=== PATIENT | female | born 1940 | race Caucasian/White ===

== ENCOUNTER 2024-02-29 15:46 | Emergency (ER) | payer OTHER, SELFPAY ==
[2024-02-29 15:54] VITALS: BP 167/107
--- NOTE | 2024-02-29 15:57 | ED.PDOC.TRB ---
ED Provider Triage
-
Patient seen by provider in Triage?: Seen in Triage
Fell recently and had left hip pain after fall. Had x-rays done at outside hospital 5 days ago which were negative. Has increased pain to left hip since then. CT pelvis ordered for occult fracture. Baby aspirin, no other thinners. Was started
on percocet and prednisone for presumed PMR flare.
--- NOTE | 2024-02-29 18:57 | ED.GENMED ---
History of Present Illness
General
Chief Complaint: Musculo-Skeletal Complaint
Source: patient
Exam Limitations: none
Time Seen by Provider: 02/29/24 18:05
Nursing documentation reviewed up to this point in time: agreed with
History of Present Illness
History of Present Illness:
Patient is a an 83-year-old female presents to the ER for evaluation of left hip pain. Patient reports that she has had several falls over the past several months last in October but over the past 3 weeks she has had worsening pain in the left hip.
She was seen rheumatology because she had a diagnosis of temporal arteritis in 2019. She reports pain is in her left hip radiating to left groin beginning progressively worse. On Thursday she was started on Medrol Dosepak by her ethnic studies professor but
on Thursday the pain was so severe she had an x-ray which was unremarkable and was seen at [facility] and started on 40 mg of steroids for the past 5 days. She was also given a prescription for oxycodone and has been taking a gram of Tylenol
several times a day as needed. She reports pain is actually getting worse. Family at bedside they have not been able to get in with orthopedic doctor.
she is able to walk however complains of worening pain. She denies any recent falls. She denies any fever/chills/redness to groin. She denies any other joint pain.
Review of Systems
Review of Systems
Allergies reviewed?: Yes
All Other Systems: ROS reviewed and negative except as documented in HPI and ROS
Constitutional: Reports no symptoms; Denies fever, fatigue or chills
Respiratory: Reports no symptoms
Cardiac: Reports no symptoms
ABD/GI: Reports no symptoms
Musculoskeletal: Reports other (left groin pain )
Skin: Reports no symptoms
Neurological: Reports no symptoms
Psychiatric: Reports no symptoms
Phy Exam
General Physical Exam
General Presentation: no apparent distress
General age: appears stated age
General Skin: warm and dry
General Habitus: normal
General Mental: alert
General Hydration: appears well hydrated
Neurological Exam
Neurological Exam: alert and oriented x3
Musculoskeletal Exam
Musculoskeletal Exam: other (pt w/ strong pulses to left lle pain with internal/external rotation of left hip ; no erythema on exam able to bear weight )
Skin Exam
Skin Exam: normal color and warm/dry
Psychiatric Exam
Psychiatric Exam: normal mood/affect
Course
Orders/Labs/Results
Orders:
Orders
02/29/24 15:56
CT Pelvis W/o Iv Contrast Urgent
Comment:
Reason For Exam: fall, left hip pain
Vital Signs
Initial and Last Documented VS:
Initial Vital Signs
Temp Pulse Resp BP Pulse Ox
98.3 F 90 18 167/107 98
02/29/24 15:54 02/29/24 15:54 02/29/24 15:54 02/29/24 15:54 02/29/24 15:54
Last Documented Vital Signs
Temp Pulse Resp BP Pulse Ox
98.3 F 90 18 167/107 98
02/29/24 15:54 02/29/24 15:54 02/29/24 15:54 02/29/24 15:54 02/29/24 15:54
MDM/Problems Addressed
MDM/Problems Addressed:
Patient is document is an 83-year-old female who presented with left hip pain for the past several weeks last fall was in October. She has been seen by her ethnic studies professor had x-rays however pain is getting worse. She denies any fever chills on exam
there is no evidence of redness or infection on exam CAT scan was done which is negative for fracture dislocation other additional findings reviewed with patient possible fibroids discussed close outpatient follow-up she has a precertification
already for MRI and son at bedside will schedule at tomorrow however will give orthopedic follow-up which she has not done. She is able to bear weight. She was given steroids and completed then we will hold off on steroids. will given pain meds
as this is the only type of medication that has worked.
*Radiology
Radiology exam reviewed: radiology read reviewed (CAT scan shows no evidence of fracture or dislocation other findings reviewed)
*Pulse Oximetry
Patient hypoxic: no
*Critical Care Note
Total Time (30-74mins, 75-104mins- exclusive of procedures): Not Applicable
ED Attending Note
-
Portions of this chart may have been created with voice recognition software.� Occasional wrong word or��sound alike� substitutions may have occurred due to the inherent limitations of voice recognition software.
Discharge Plan
Departure
Patient Disposition: Home (Routine Discharge)
Date of Disposition: 02/29/24
Time of Disposition: 20:00
Patient with high blood pressure during this ER visit?: Yes
Condition: Fair
Covid-19: Not Applicable
Discharge Problem:
Acute hip pain
Instructions: Hip Pain ED
Prescriptions:
New
oxycodone 5 mg tablet
5 mg PO Q6H PRN (Reason: Pain) Qty: 10 0RF
Referrals:
Peter Yanez MD [Active] -
UNKNOWN - PT DOES,NOT KNOW [Family Provider] -
Activity Restrictions/Additional Instructions:
As discussed a prescription for oxycodone was sent to pharmacy take as directed. It is important to take stool softener as needed as this will cause constipation. Follow-up closely with orthopedics. Please call tomorrow to make an appointment
return if any worsening of symptoms including worsening pain fever chills.
Interventions
Interventions:
*Risk Screen - Suicide Last Done: 02/29/24 15:54
*General Assessment Last Done: 02/29/24 15:54
*Neglect/Abuse Screening Last Done: 02/29/24 15:54
Discharge Date and Time
Print Language: COOK ISLANDER
[2024-02-29] MEDS: ROXICODONE 5 MG PO (20:12)
[2024-02-29 20:16] VITALS: BP 132/68
== END 2024-02-29 20:22 | disposition home or self-care (01) ==
LOC: EMR 15:46
PROVIDERS: EMERGENCY PHYSICIAN Emergency Medicine
DX: M25.552 Pain in left hip (principal); W19.XXXA Unspecified fall, initial encounter; M31.6 Other giant cell arteritis; I10 Essential (primary) hypertension; K21.9 Gastro-esophageal reflux disease without esophagitis; E03.9 Hypothyroidism, unspecified; Z79.82 Long term (current) use of aspirin; R29.6 Repeated falls; Z88.2 Allergy status to sulfonamides; Z88.8 Allergy status to other drugs, medicaments and biological substances; Z88.6 Allergy status to analgesic agent; Z91.012 Allergy to eggs; Z91.040 Latex allergy status
CPT/HCPCS: 99284; 72192

== ENCOUNTER 2024-03-04 08:41 | Inpatient (IN) | payer OTHER, SELFPAY ==
[2024-03-01 18:39] VITALS: BP 155/74
[2024-03-01] MEDS: DECADRON 10 MG IV (21:12)
[2024-03-01] MEDS: TORADOL 15 MG IV (21:13)
[2024-03-01 21:29] LABS: % Basophils 0.5 % (0-2); % Eosinophils 3.1 % (0-6); % Immature Granulocytes 0.6 % (0-0.5); % Lymphocytes 28.2 % (20.5-51.1); % Monocytes 9.6 % (1.7-9.3); Absolute Basophils 0.1 10^3/uL (0-0.2); Absolute Eosinophils 0.5 10^3/uL (0-0.7); Absolute Immature Granulocytes 0.1 10^3/uL (0-0.05); Absolute Lymphocytes 4.6 10^3/uL (1.2-3.4); Absolute Monocytes 1.6 10^3/uL (0.1-0.6); Absolute Neutrophils 9.4 10^3/uL (1.4-6.5); Hematocrit 41.1 % (37.0-47.0); Hemoglobin 13.6 g/dL (12.0-16.0); Mean Corp Hgb Conc. 33.1 g/dL (33.0-37.0); Mean Corpuscular Hgb 27.8 pg (27.0-31.0); Mean Platelet Volume 8.1 fL (7.4-10.4); Nucleated Red Blood Cells % 0 %; Platelet Count 614 10^3/uL (130-400); Red Blood Cell Count 4.89 10^6/uL (4.20-5.40); Red Cell Dist. Width 15.5 % (11.5-14.5); White Blood Cell Count 16.2 10^3/uL (4.8-10.8)
--- NOTE | 2024-03-01 21:31 | ED.GENMED ---
History of Present Illness
General
Chief Complaint: Musculo-Skeletal Complaint
Source: patient and family
Exam Limitations: none
Time Seen by Provider: 03/01/24 20:00
Nursing documentation reviewed up to this point in time: agreed with
History of Present Illness
History of Present Illness:
Patient presents to ED secondary to worsening left hip pain over the past 2 weeks. Patient has been evaluated in ED on multiple occasions as well as a visit with her loft worker apprentice. Patient has taken steroids, as well as Percocet at home, with
minimal relief in symptoms. Denies direct trauma. Denies fever or chills. Denies loss of sensation or weakness. Denies back pain. Denies urinary or bowel incontinence. Denies previous history of similar symptoms. Patient has had x-ray, as
well as CT hip, without identification of etiology behind her symptoms. Patient is scheduled to receive MRI next week, as well as orthopedic surgeon consult. Unfortunately, pain has worsened to a point, where patient states that she is unable to
ambulate. Of note, patient has been evaluated and treated at outpatient physical therapy, secondary to 'balance issues'.
Review of Systems
Review of Systems
Allergies reviewed?: Yes
All Other Systems: ROS reviewed and negative except as documented in HPI and ROS
Constitutional: Reports no symptoms
EENT: Reports no symptoms
ABD/GI: Reports no symptoms
: Reports no symptoms; Denies incontinence
Musculoskeletal: Reports joint pain
Skin: Reports no symptoms
Neurological: Reports no symptoms; Denies weakness or numbness
Phy Exam
Physical Exam
Physical Exam:
Physical Exam
General: mild painful distress, not acutely ill. afebrile
Head: nc/at. eomi
Neck: supple. no meningeal signs
Abdomen: normal bowel sounds. not tender.
Neuro: alert and oriented. no focal neurological deficits
Skin: no rash
Psychiatric: well kept. interactive and cooperative
Extremities: diffuse left hip tenderness to palpation, and with internal/external rotation.
Course
Orders/Labs/Results
Orders:
Orders
03/01/24 21:05
Dexamethasone Sod Phosphate [Decadron] 10 mg IV NOW STA
Ketorolac [Toradol] 15 mg IV NOW STA
03/01/24 21:19
C-Reactive Protein Urgent
Comment: ADD ON
CPK [Creatine Phosphokinase] Urgent
Complete Blood Count/With Diff Urgent
Comprehensive Metabolic Panel Urgent
Erythrocyte Sed Rate Urgent
Comment: ADD ON
Magnesium Urgent
03/01/24 21:31
Add On- LAB Urgent
Tests Added?: ESR, CRP
03/01/24 22:38
Admit/Transfer Patient As Directed
Co-Sign Provider:
Level of Care: Observation services
Assign to:: Medical/Surgical
Physician / Group: isa
Diagnosis: left hip pain/ambulatory dysfunction
PRN Pain Medication Management As Directed
May give lesser potent ordered pain med per pt: Yes
preference::
Protocol:: Medication orders for pain may be administered in a
manner that supports deferring to patient preference
when the pt is:
- Requesting an ordered lesser potent pain medication.
Least to most potent pain medications are defined
as: acetaminophen < NSAID < tramadol < opioids
(morphine, oxycodone, hydromorphone).
- Requesting a lesser dose of the same medication IF
ORDERED.
- Requesting a less intrusive route of administration
if both routes are prescribed by the provider (PO <
IV).
03/01/24 22:39
Code Status As Directed
Resuscitation Status: Full Code
03/01/24 23:00
HYDROmorphone [Dilaudid] 0.5 mg IV Q4HPRN PRN
03/02/24 00:09
Acetaminophen [Tylenol] 650 mg PO Q4HPRN PRN
Bisacodyl [Dulcolax] 10 mg RECTAL [id number] PRN
Docusate W/Senna [Senokot-S] 1 tablet PO BIDPRN PRN
Melatonin 1.5 mg PO HSPRN PRN
Polyethylene Glycol Powder [Miralax] 17 grams PO DAILYPRN PRN
03/02/24 00:09
MR Pelvis W/o & With Contrast Routine
Comment:
Reason For Exam: left hip pain
Recent pill cam endoscopy?: No
Activity As Directed
Activity Level: As Tolerated
Vital Signs As Directed
Frequency: Per unit guidelines
DX Deep Vein Thrombosis Video Routine
03/02/24 Breakfast
Cholesterol Lowering
At Your Request: Full Participation
Does patient need a safe tray?: No
Cholesterol Lowering: Sodium, 2 Gram
Basic Metabolic Panel IN AM
Complete Blood Count/No Diff IN AM
Levothyroxine [Synthroid] 37.5 mcg PO DAILY@0600
Physical Therapy Consult [Pt Eval And Treat] IN AM
Activity Level: As Tolerated
03/02/24 08:00
Aspirin Low Dose EC [Aspir Low (Enteric Coated)] 81 mg PO DAILY
Bupropion(24Hr)Extended Releas [WELLBUTRIN XL (24 hour extended release)] 150 mg PO DAILY
Calcium Carbonate [Oscal Linden 500] 500 mg PO BID
Mirabegron Extended Release [Myrbetriq Extended Release] 50 mg PO DAILY
ezetimibe-simvastatin 1 tablet PO DAILY
03/02/24 18:00
Amlodipine [Norvasc] 5 mg PO QPM
Enoxaparin Sodium [Lovenox] 40 mg SC QPM
Losartan [Cozaar] 100 mg PO QPM
Methenamine Hippurate [Hiprex] 1 gram PO QPM
Abnormal Lab Results
03/01/24
21:19
WBC 16.2 H 10^3/uL
(4.8-10.8)
RDW 15.5 H %
(11.5-14.5)
Plt Count 614 H 10^3/uL
(130-400)
Abs Immat Gran (auto) 0.1 H 10^3/uL
(0-0.05)
Absolute Neuts (auto) 9.4 H 10^3/uL
(1.4-6.5)
Absolute Lymphs (auto) 4.6 H 10^3/uL
(1.2-3.4)
Absolute Monos (auto) 1.6 H 10^3/uL
(0.1-0.6)
Immature Gran % 0.6 H %
(0-0.5)
Monocytes % 9.6 H %
(1.7-9.3)
Sodium 133 L mmol/L
(135-145)
Chloride 97 L mmol/L
(98-107)
BUN 33 H mg/dl
(7-17)
Glucose 104 H mg/dl
(70-99)
03/01/24 21:19
03/01/24 21:19
Vital Signs
Initial and Last Documented VS:
Initial Vital Signs
Temp Pulse Resp BP Pulse Ox
98.3 F 97 18 155/74 97
03/01/24 18:39 03/01/24 18:39 03/01/24 18:39 03/01/24 18:39 03/01/24 18:39
Last Documented Vital Signs
Temp Pulse Resp BP Pulse Ox
97.9 F 81 18 111/62 94
03/02/24 00:00 03/02/24 00:00 03/02/24 00:00 03/02/24 00:00 03/02/24 00:00
MDM/Problems Addressed
MDM/Problems Addressed:
Patient with continual hip pain, despite taking pain medications at home. This is patient's third ED visit in 8 days with ongoing symptoms, without clear etiology. Will admit for further evaluation and treatment.
*Critical Care Note
Total Time (30-74mins, 75-104mins- exclusive of procedures): Not Applicable
ED Attending Note
-
Portions of this chart may have been created with voice recognition software.� Occasional wrong word or��sound alike� substitutions may have occurred due to the inherent limitations of voice recognition software.
Discharge Plan
Departure
Patient Disposition: Admit
Date of Disposition: 03/01/24
Time of Disposition: 22:01
Presentation/result/management discussed w/ accepting MD/DO: Hospitalist
Discharge Problem:
intractable hip pain
Interventions
Interventions:
*Risk Screen - Suicide Last Done: 03/02/24 00:28
*General Assessment Last Done: 03/01/24 19:45
*Neglect/Abuse Screening Last Done: 03/01/24 19:45
ED- Fall Risk Assessment Last Done: 03/02/24 00:18
*ED COVID-19 Vaccine History Last Done: 03/02/24 00:28
*Nursing Disposition Last Done: 03/02/24 00:18
ED-Musculoskeletal Assessment Last Done: 03/01/24 19:45
Discharge Date and Time
Discharge Date/Time: 03/02/24 00:19
[2024-03-01 21:54] LABS: ALT (SGPT) 31 U/L (0-35); AST (SGOT) 32 U/L (14-36); Albumin 4.8 g/dl (3.5-5.0); Alkaline Phosphatase 60 U/L (38-126); Blood Urea Nitrogen 33 mg/dl (7-17); Calcium 9.5 mg/dl (8.4-10.2); Carbon Dioxide 30 mmol/L (22-30); Chloride 97 mmol/L (98-107); Creatine Phosphokinase 68 U/L (30-135); Glucose 104 mg/dl (70-99); Magnesium 2.2 mg/dl (1.6-2.3); Potassium 4.8 mmol/L (3.5-5.1); Sodium 133 mmol/L (135-145); Total Bilirubin 0.8 mg/dl (0.2-1.3); eGFR > 60.00
[2024-03-01 22:09] LABS: Erythrocyte Sed Rate 4 mm/hour (0-20)
--- NOTE | 2024-03-01 22:09 | HPS.HSE ---
Addendum entered and electronically signed by Micah Babin DO 03/01/24 23:55:
Patient seen and examined independently. Agree with findings and plan as set forth by DAVEY Antonio.
Patient is an 83y F with PMH significant for hypertension, hypothyroidism and giant cell arteritis who presents to ED complaining of L hip pain. Patient states that pain has been present for about 10 days. No significant fall, injury or trauma
is reported. Patient has been seen here in the ED and by her PCP with no clear etiology for her pain discovered.
Patient states that the pain is in the L buttocks with radiation into the L anterior thigh and groin. No GI, GI complaints.
No vaginal bleeding or discharge. No fevers / chills. No rash / skin lesions appreciated.
Ass:
Left Hip Pain
Abnormal Pelvic CT
Leukocytosis - ? steroid induced
Benign Hypertension
Hypothyroidism
GERD
Plan:
Observe overnight for further evaluation and treatment.
CT shows uterine fibroids and - specifically - cervical fibroid measuring 3cm.
Mild DJD, no occult fractures, etc.
Check pelvis MRI for further evaluation.
Supportive care / pain control /etc for now.
PT / OT evaluations.
Consider Ortho v STATION SUPERVISOR evaluation depending on results of MRI.
Continue usual home medications.
Original Note:
Family Physician
-
Family Physician: NOT KNOW UNKNOWN - PT DOES
Chief Complaint
-
left hip pain
History of Present Illness
83 year old with PMH for Giant cell arteritis,HTN, depression,HLD,hypothyroidism, GERD presented to us with with left hip pain radiating to her thigh and left groin for past ten days. patient was evaluated by her outside maintenance worker, who prescribed her
gabapentin with no relief in her symptoms. patient was evaluated at [place] ED. X rays with no acute findings. patient was sent home on prednisone and Percocet, which helped her briefly. she is scheduled to get MRI next week. the pain is affecting
her activities of daily living. patient can barely walk due to the pain. Denies direct trauma. Denies fever or chills. Denies loss of sensation or weakness. Denies back pain. Denies urinary or bowel incontinence. Of note, patient has been
evaluated and treated at outpatient physical therapy, secondary to foot drop and ambulatory dysfunction.
admitting for further management.
Medical History
Past Medical History
Past Medical History: Reports Other
Additional Past Medical History:
giant cell arteritis
HTN
HLD
hypothyroidism
NSTEMI
pneumonia
b/l Foot drop
Past Surgical History: Reports Other
Additional Past Surgical History:
c section
Social History
Tobacco: Former Smoker
Alcohol: Occasional
Drug: None
Family History
Family History: Not pertinent
Allergies / Home Medications
Allergies reflects when Allergies were last updated in [facility].
Home Medications with original date entered in [facility]
Allergy/Medication List:
Allergies
Allergy/AdvReac Type Severity Reaction Status Date / Time
acetaminophen [From Tylenol] Allergy Pharmacy Verified 03/01/24 18:43
to Review
diphenhydramine Allergy Unknown Verified 03/01/24 18:42
[From Benadryl]
egg Allergy Unknown Verified 03/01/24 18:42
etomidate Allergy Unknown Verified 03/01/24 18:42
ibuprofen [From Motrin] Allergy Unknown Verified 03/01/24 18:42
latex Allergy Unknown Verified 03/01/24 18:42
Sulfa (Sulfonamide Allergy Unknown Verified 03/01/24 18:42
Antibiotics)
tocilizumab [From Actemra] Allergy Unknown Verified 03/01/24 18:42
Home Medications
acetaminophen 500 mg tablet (Tylenol Extra Strength) 1,000 mg PO Q6H 03/01/24
amlodipine 5 mg tablet 5 mg PO QPM 03/01/24
aspirin 81 mg tablet,delayed release 81 mg PO DAILY 03/01/24
bupropion HCl 150 mg 24 hr tablet, extended release 150 mg PO DAILY 03/01/24
calcium citrate 200 mg (950 mg) tablet 200 mg PO BID 03/01/24
cranberry fruit 450 mg tablet (cranberry) 900 mg PO BID 03/01/24
estradiol 0.01% (0.1 mg/gram) vaginal cream 1 appful vaginal SUTH 03/01/24
ezetimibe 10 mg-simvastatin 20 mg tablet 1 tab PO DAILY 03/01/24
levothyroxine 75 mcg tablet 37.5 mcg PO DAILY 03/01/24
losartan 50 mg tablet 100 mg PO QPM 03/01/24
melatonin 3 mg tablet 1.5 mg PO HSPRN PRN sleep 03/01/24
methenamine hippurate 1 gram tablet 1 g PO QPM 03/01/24
mirabegron 50 mg tablet,extended release 24 hr (Myrbetriq) 50 mg PO DAILY 03/01/24
omeprazole 40 mg capsule,delayed release 40 mg PO DAILY 03/01/24
oxycodone 5 mg tablet 5 mg PO Q6H Pain 03/01/24
therapeutic multivitamin 1 tab PO DAILY 03/01/24
Review of Systems
-
Constitutional: Reports No Symptoms
EENT: Reports No Symptoms
Respiratory: Reports No Symptoms
Cardiac: Reports No Symptoms
Abdomen/GI: Reports No Symptoms
: Reports No Symptoms
Musculoskeletal: Reports Other (left hip pain)
Skin: Reports No Symptoms
Neurological: Reports No Symptoms
Endocrine: Reports No Symptoms
Hematologic/Lymphatic: Reports No Symptoms
Psych: Reports No Symptoms
Physical Exam
Vital Signs
Vital Signs
Temp Pulse Resp BP Pulse Ox
98.3 F 97 18 155/74 97
03/01/24 18:39 03/01/24 18:39 03/01/24 18:39 03/01/24 18:39 03/01/24 18:39
Physical Exam
General: Well Developed, Well Nourished and No Apparent Distress
HEENT: NormoCephalic, Moist mucous membranes and Atraumatic
Respiratory: Clear
Cardiac: S1/S2 and Regular Rhythm; No Murmur or Rub
GI: Soft, Non Tender, Non Distended and Normal Bowel Sounds; No Organomegaly
Rectal: Deferred by Provider
Musculoskeletal: No Clubbing, No Cyanosis and No Edema
Skin: No Rash
Neuro: AO x 3 and Nonfocal/grossly intact
Psych: Calm
Laboratory Results
-
03/01/24 21:19
03/01/24 21:19
Laboratory Results
Total Bilirubin 0.8 mg/dl (0.2-1.3) 03/01/24 21:19
AST 32 U/L (14-36) 03/01/24 21:19
ALT 31 U/L (0-35) 03/01/24 21:19
Alkaline Phosphatase 60 U/L (38-126) 03/01/24 21:19
Data Reviewed
-
CT Scan: Report Reviewed by me
Lab Data: Labs Reviewed by me
Impression/Plan
-
#intractable left hip pain unclear cause
#calcified fibroid
-pelvis CT with No CT evidence for acute fracture or dislocation.1.8 cm calcification involving the right side of the uterus compatible with calcified fibroid.At the junction of the superior vagina and the cervix, 3 cm rounded focus of relatively
increased density. Etiology for this finding is uncertain, possibly a cervical fibroid. If further imaging evaluation is desired, consideration for pelvic ultrasound and/or pelvic MRI.
-MRI of Pelvis
-Tylenol, Dilaudid prn for pain
-consider STATION SUPERVISOR vs ortho pending MRI results.
-PT consult
#leukocytosis likely from steroids
-afebrile, ctm
-wbc 16.2
#essential HTN
-Norvasc, and losartan continued with hold parameter
#HLD
-statin continued
#hypothyroidism
-levothyroxine continued
#GERD
-PPI continued
#DVT prophylaxis
-Lovenox
#CODE status
-full code
[2024-03-01 22:38] VITALS: BP 106/70
[2024-03-01] MEDS: DILAUDID 0.5 MG IV (23:07)
[2024-03-01 23:15] VITALS: BP 148/78
[2024-03-01 23:16] VITALS: BMI 28.3
[2024-03-01 23:27] LABS: C-Reactive Protein < 5.00 mg/L (0.0-10.00)
[2024-03-02] VITALS: BP 111/62; BMI 26.9
--- NOTE | 2024-03-02 | PTCARENOTE ---
Pt arrived from ED via stretcher and ambulated to bed. Pt is AAOx3, VSS, and rates pain 1/10. Pt is resting comfortably w/ call mistry within reach.
[2024-03-02] MEDS: TYLENOL 650 MG PO ×2 (03:21→07:58)
[2024-03-02] MEDS: DILAUDID 0.5 MG IV (04:57)
[2024-03-02] MEDS: SYNTHROID 37.5 MCG PO (04:59)
[2024-03-02 07:54] VITALS: BP 96/62
[2024-03-02] MEDS: ZETIA 10 MG PO (07:55)
[2024-03-02] MEDS: LIPITOR 10 MG PO (07:55)
[2024-03-02] MEDS: MYRBETRIQ EXTENDED RELEASE 50 MG PO (07:55)
[2024-03-02] MEDS: WELLBUTRIN XL (24 hour extended release) 150 MG PO (07:55)
[2024-03-02] MEDS: ASPIR LOW (ENTERIC COATED) 81 MG PO (07:55)
[2024-03-02] MEDS: OSCAL CAL 500 500 MG PO ×2 (07:56→19:36)
[2024-03-02 08:59] LABS: Hematocrit 41.5 % (37.0-47.0); Hemoglobin 13.7 g/dL (12.0-16.0); Mean Corpuscular Hgb 27.7 pg (27.0-31.0); Mean Corpuscular Volume 83.8 fL (81.0-99.0); Mean Platelet Volume 8.3 fL (7.4-10.4); Platelet Count 660 10^3/uL (130-400); Red Blood Cell Count 4.95 10^6/uL (4.20-5.40); Red Cell Dist. Width 15.5 % (11.5-14.5); White Blood Cell Count 11.7 10^3/uL (4.8-10.8)
[2024-03-02 10:33] LABS: Blood Urea Nitrogen 25 mg/dl (7-17); Calcium 9.4 mg/dl (8.4-10.2); Carbon Dioxide 26 mmol/L (22-30); Chloride 97 mmol/L (98-107); Estimated Creatinine Clearance 49 ml/min; Glucose 167 mg/dl (70-99); Sodium 135 mmol/L (135-145); eGFR > 60.00
--- NOTE | 2024-03-02 12:19 | W.PN.HOSP.TC ---
Today's Communication/Plan
-
Monitor vital signs
see plan
Pain control
MRI today
Monitor leukocytosis
Assessment / Plan
Assessment / Plan
General: Well Developed, Well Nourished and No Apparent Distress
HEENT: NormoCephalic, Moist mucous membranes and Atraumatic
Respiratory: Clear
Cardiac: S1/S2 and Regular Rhythm; No Murmur or Rub
GI: Soft, Non Tender, Non Distended and Normal Bowel Sounds
Musculoskeletal: No Edema
Neuro: AO x 3 and Nonfocal/grossly intact
Psych: Calm
intractable left hip pain unclear cause
#calcified fibroid
-pelvis CT with No CT evidence for acute fracture or dislocation.1.8 cm calcification involving the right side of the uterus compatible with calcified fibroid.At the junction of the superior vagina and the cervix, 3 cm rounded focus of relatively
increased density. Etiology for this finding is uncertain, possibly a cervical fibroid. If further imaging evaluation is desired, consideration for pelvic ultrasound and/or pelvic MRI.
-MRI of Pelvis amd lumbar spine
-Tylenol, Dilaudid prn for pain
-consider DENTURE MODEL MAKER vs ortho pending MRI results.
-PT consult
#leukocytosis likely from steroids
-afebrile, ctm
Hyponatremia
Improving, monitor
#essential HTN
-Norvasc, and losartan continued with hold parameter
#HLD
-statin continued
#hypothyroidism
-levothyroxine continued
#GERD
-PPI continued
#DVT prophylaxis
-Lovenox
#CODE status
-full code
Anticipated Discharge: 24 - 48 hours
Subjective/Interval History
-
Date of Service: March 02, 2024
has some pain
Objective Data
-
Labs:
Laboratory Results
03/02/24
08:26
WBC 11.7 H
Hgb 13.7
Hct 41.5
Plt Count 660 H
Sodium 135
Potassium 5.0
Chloride 97 L
Carbon Dioxide 26
BUN 25 H
Creatinine 0.8
Glucose 167 H
Calcium 9.4
Vital Signs:
Vital Signs
Temp Pulse Resp BP Pulse Ox
97.8 F 79 18 96/62 96
03/02/24 07:54 03/02/24 07:54 03/02/24 07:54 03/02/24 07:54 03/02/24 07:54
[2024-03-02 13:40] LABS: Creatine Phosphokinase 53 U/L (30-135)
[2024-03-02] MEDS: SENOKOT-S 1 TABLET PO (15:23)
[2024-03-02] MEDS: MIRALAX 17 GRAMS PO (15:23)
[2024-03-02 15:55] VITALS: BP 125/58
[2024-03-02] MEDS: COZAAR 100 MG PO (16:51)
[2024-03-02] MEDS: HIPREX 1 GRAM PO (16:51)
[2024-03-02] MEDS: LOVENOX 40 MG SC (16:51)
[2024-03-02] MEDS: NORVASC 5 MG PO (16:51)
--- NOTE | 2024-03-02 17:29 | PTCARENOTE ---
Patient ambulating to bathroom with supervision. Patient has no c/o pain at present. Patient c/o constipation-Miralax and Senekot given.
[2024-03-02 23:00] VITALS: BP 113/52
[2024-03-03] MEDS: SYNTHROID 37.5 MCG PO (05:26)
[2024-03-03 07:30] VITALS: BP 140/70
[2024-03-03 08:14] LABS: % Basophils 0.5 % (0-2); % Eosinophils 2.5 % (0-6); % Immature Granulocytes 0.6 % (0-0.5); % Lymphocytes 35.6 % (20.5-51.1); % Monocytes 8.6 % (1.7-9.3); % Neutrophils 52.2 % (42.2-75.2); Absolute Basophils 0.1 10^3/uL (0-0.2); Absolute Eosinophils 0.3 10^3/uL (0-0.7); Absolute Immature Granulocytes 0.1 10^3/uL (0-0.05); Absolute Lymphocytes 4.6 10^3/uL (1.2-3.4); Absolute Monocytes 1.1 10^3/uL (0.1-0.6); Absolute Neutrophils 6.7 10^3/uL (1.4-6.5); Hematocrit 41.3 % (37.0-47.0); Hemoglobin 13.5 g/dL (12.0-16.0); Mean Corp Hgb Conc. 32.7 g/dL (33.0-37.0); Mean Corpuscular Hgb 27.8 pg (27.0-31.0); Mean Corpuscular Volume 85.2 fL (81.0-99.0); Mean Platelet Volume 8.3 fL (7.4-10.4); Nucleated Red Blood Cells % 0 %; Platelet Count 600 10^3/uL (130-400); Red Blood Cell Count 4.85 10^6/uL (4.20-5.40); Red Cell Dist. Width 15.6 % (11.5-14.5); White Blood Cell Count 12.9 10^3/uL (4.8-10.8)
[2024-03-03] MEDS: ZETIA 10 MG PO (08:25)
[2024-03-03] MEDS: MYRBETRIQ EXTENDED RELEASE 50 MG PO (08:25)
[2024-03-03] MEDS: OSCAL CAL 500 500 MG PO ×2 (08:25→20:21)
[2024-03-03] MEDS: LIPITOR 10 MG PO (08:25)
[2024-03-03] MEDS: ASPIR LOW (ENTERIC COATED) 81 MG PO (08:25)
[2024-03-03] MEDS: TYLENOL 650 MG PO ×2 (08:25→18:09)
[2024-03-03] MEDS: WELLBUTRIN XL (24 hour extended release) 150 MG PO (08:25)
[2024-03-03 08:43] LABS: Blood Urea Nitrogen 28 mg/dl (7-17); Calcium 9.5 mg/dl (8.4-10.2); Carbon Dioxide 27 mmol/L (22-30); Chloride 101 mmol/L (98-107); Estimated Creatinine Clearance 49 ml/min; Glucose 79 mg/dl (70-99); Potassium 4.6 mmol/L (3.5-5.1); Sodium 135 mmol/L (135-145); eGFR > 60.00
[2024-03-03] MEDS: ATIVAN 0.5 MG PO (10:42)
--- NOTE | 2024-03-03 12:32 | W.PN.HOSP.TC ---
Today's Communication/Plan
-
Monitor vital signs see plan
Pain control
MRI
Assessment / Plan
Assessment / Plan
General: Well Developed, Well Nourished and No Apparent Distress
HEENT: NormoCephalic, Moist mucous membranes and Atraumatic
Respiratory: Clear
Cardiac: S1/S2 and Regular Rhythm; No Murmur or Rub
GI: Soft, Non Tender, Non Distended and Normal Bowel Sounds
Musculoskeletal: No Edema
Neuro: AO x 3 and Nonfocal/grossly intact
Psych: Calm
intractable left hip pain unclear cause
#calcified fibroid
-pelvis CT with No CT evidence for acute fracture or dislocation.1.8 cm calcification involving the right side of the uterus compatible with calcified fibroid.At the junction of the superior vagina and the cervix, 3 cm rounded focus of relatively
increased density. Etiology for this finding is uncertain, possibly a cervical fibroid. If further imaging evaluation is desired, consideration for pelvic ultrasound and/or pelvic MRI.
-MRI of Pelvis pending; MRI lumbar spine with degenerative disc disease with foraminal narrowing
-Tylenol, Dilaudid prn for pain. per patient pain is improving. If imaging does not show any acute findings and she can likely be discharged with outpatient follow-up.
-consider APPOINTMENT COORDINATOR vs ortho pending MRI results. if no acute issues then can be seen outpatient
-PT/OT consult
#leukocytosis likely from steroids
-afebrile, ctm
Hyponatremia
Improving, monitor
#essential HTN
-Norvasc, and losartan continued with hold parameter
#HLD
-statin continued
#hypothyroidism
-levothyroxine continued
#GERD
-PPI continued
#DVT prophylaxis
-Lovenox
#CODE status
-full code
Anticipated Discharge: Within 24 hours
Subjective/Interval History
-
Date of Service: March 03, 2024
denies pain
Objective Data
-
Labs:
Laboratory Results
03/03/24
07:09
WBC 12.9 H
Hgb 13.5
Hct 41.3
Plt Count 600 H
Sodium 135
Potassium 4.6
Chloride 101
Carbon Dioxide 27
BUN 28 H
Creatinine 0.8
Glucose 79
Calcium 9.5
Vital Signs:
Vital Signs
Temp Pulse Resp BP Pulse Ox
98 F 78 16 140/70 98
03/03/24 07:30 03/03/24 07:30 03/03/24 07:30 03/03/24 07:30 03/03/24 07:30
I&O
03/02/24 03/03/24 03/04/24
06:59 06:59 06:59
Intake Total 840 / 840
Balance 840 / 840
[2024-03-03 15:45] VITALS: BP 106/58
[2024-03-03] MEDS: DULCOLAX 10 MG RECTAL (16:09)
[2024-03-03] MEDS: HIPREX 1 GRAM PO (18:09)
[2024-03-03] MEDS: NORVASC 5 MG PO (18:09)
[2024-03-03] MEDS: COZAAR 100 MG PO (18:09)
[2024-03-03] MEDS: LOVENOX 40 MG SC (18:10)
[2024-03-03] MEDS: DILAUDID 0.5 MG IV (21:22)
[2024-03-03 23:19] VITALS: BP 122/68
[2024-03-04] MEDS: TYLENOL 650 MG PO ×4 (02:45→19:39)
[2024-03-04] MEDS: OMNIPAQUE 50 ML PO (06:06)
[2024-03-04] MEDS: SYNTHROID 37.5 MCG PO (06:07)
[2024-03-04 08:03] VITALS: BP 110/58
[2024-03-04 08:36] LABS: % Basophils 0.6 % (0-2); % Eosinophils 3.8 % (0-6); % Immature Granulocytes 0.5 % (0-0.5); % Lymphocytes 25.7 % (20.5-51.1); % Monocytes 9.8 % (1.7-9.3); % Neutrophils 59.6 % (42.2-75.2); Absolute Basophils 0.1 10^3/uL (0-0.2); Absolute Eosinophils 0.4 10^3/uL (0-0.7); Absolute Immature Granulocytes 0.1 10^3/uL (0-0.05); Absolute Lymphocytes 2.8 10^3/uL (1.2-3.4); Absolute Monocytes 1.1 10^3/uL (0.1-0.6); Absolute Neutrophils 6.5 10^3/uL (1.4-6.5); Hematocrit 39.4 % (37.0-47.0); Hemoglobin 13.2 g/dL (12.0-16.0); Mean Corp Hgb Conc. 33.5 g/dL (33.0-37.0); Mean Corpuscular Hgb 28.7 pg (27.0-31.0); Mean Corpuscular Volume 85.7 fL (81.0-99.0); Mean Platelet Volume 8.4 fL (7.4-10.4); Nucleated Red Blood Cells % 0 %; Platelet Count 522 10^3/uL (130-400); Red Cell Dist. Width 15.2 % (11.5-14.5)
[2024-03-04 09:01] LABS: Blood Urea Nitrogen 25 mg/dl (7-17); Calcium 9.5 mg/dl (8.4-10.2); Carbon Dioxide 27 mmol/L (22-30); Chloride 95 mmol/L (98-107); Estimated Creatinine Clearance 49 ml/min; Glucose 86 mg/dl (70-99); Potassium 4.4 mmol/L (3.5-5.1); Sodium 130 mmol/L (135-145); eGFR > 60.00
[2024-03-04] MEDS: ASPIR LOW (ENTERIC COATED) 81 MG PO (09:55)
[2024-03-04] MEDS: LIPITOR 10 MG PO (09:56)
[2024-03-04] MEDS: WELLBUTRIN XL (24 hour extended release) 150 MG PO (09:56)
[2024-03-04] MEDS: MYRBETRIQ EXTENDED RELEASE 50 MG PO (09:56)
[2024-03-04] MEDS: ZETIA 10 MG PO (09:56)
[2024-03-04] MEDS: OSCAL CAL 500 500 MG PO ×2 (09:57→19:39)
--- NOTE | 2024-03-04 12:55 | W.PN.HOSP.TC ---
Today's Communication/Plan
-
Monitor vital signs and see plan
Colorectal surgery evaluation
Monitor sodium
Assessment / Plan
Assessment / Plan
General: Well Developed, Well Nourished and No Apparent Distress
HEENT: NormoCephalic, Moist mucous membranes and Atraumatic
Respiratory: Clear
Cardiac: S1/S2 and Regular Rhythm; No Murmur or Rub
GI: Soft, Non Tender, Non Distended and Normal Bowel Sounds
Musculoskeletal: No Edema
Neuro: AO x 3 and Nonfocal/grossly intact
Psych: Calm
intractable left hip pain unclear cause
#calcified fibroid
-pelvis CT with No CT evidence for acute fracture or dislocation.1.8 cm calcification involving the right side of the uterus compatible with calcified fibroid.At the junction of the superior vagina and the cervix, 3 cm rounded focus of relatively
increased density. Etiology for this finding is uncertain, possibly a cervical fibroid. If further imaging evaluation is desired, consideration for pelvic ultrasound and/or pelvic MRI.
-MRI of Pelvis pending; MRI lumbar spine with degenerative disc disease with foraminal narrowing
-Tylenol, Dilaudid prn for pain. per patient pain is improving. If imaging does not show any acute findings and she can likely be discharged with outpatient follow-up.
Follow-up with [facility] outpatient. MRI was concerning for possible rectal mass. CT scan of the abdomen/pelvis 03/04 noted. Direct visualization is advised. colorectal consulted
-PT/OT consult
#leukocytosis likely from steroids
-afebrile, ctm
Hyponatremia
monitor
#essential HTN
-Norvasc, and losartan continued with hold parameter
#HLD
-statin continued
#hypothyroidism
-levothyroxine continued
#GERD
-PPI continued
#DVT prophylaxis
-Lovenox
#CODE status
-full code
Anticipated Discharge: Within 24 hours
Subjective/Interval History
-
Date of Service: March 04, 2024
denies nausea
Objective Data
-
Labs:
Laboratory Results
03/04/24
08:13
WBC 11.0 H
Hgb 13.2
Hct 39.4
Plt Count 522 H
Sodium 130 L
Potassium 4.4
Chloride 95 L
Carbon Dioxide 27
BUN 25 H
Creatinine 0.8
Glucose 86
Calcium 9.5
Vital Signs:
Vital Signs
Temp Pulse Resp BP Pulse Ox
97.5 F 70 18 110/58 98
03/04/24 08:03 03/04/24 08:03 03/04/24 08:03 03/04/24 08:03 03/04/24 08:03
I&O
03/03/24 03/04/24 03/05/24
06:59 06:59 06:59
Intake Total 840 / 840 1380 / 1380
Balance 840 / 840 1380 / 1380
--- NOTE | 2024-03-04 13:45 | CON.CRS ---
Consultation
-
Date/Time Consultation Requested: 03/04/2024, 12:54
Date/Time Consultation Performed: 03/04/2024, 14:30
Requesting Provider: Link Mercado MD
Performing Provider: Arpit Wilkins MD
Reason for Consultation: possible rectal mass
Medical History
-
Chief Complaint: left groin and thigh pain
History of Present Illness:
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 She was seen by her outpatient bolt man who prescribed her gabapentin which did not help relieve her
symptoms. Initially she went to [facility] and had an x-ray with no acute findings. She was sent home on prednisone and Percocet which helped minimally. She has an outpatient MRI scheduled for next week. Due to unable to hardly walk due to the
pain, she came to [facility]. She denies any direct trauma to the area.
Upon admission she underwent a pelvic CT which showed no evidence of acute fracture or dislocation, a 1.8 cm calcification in the right side of the uterus compatible with calcified fibroid, at the junction of superior vagina and cervix there is a 3
cm rounded focus of relatively increased density, etiology uncertain. Given this finding, she then underwent an MRI of the pelvis. The MRI of the pelvis showed a prominent cervix with probable innumerable complex nabothian cysts. Rectal mass.
This could represent adherent feces. Today she underwent a CT of the abdomen and pelvis which showed an either wall adherent stool or mass in the distal rectum with no evidence of metastatic disease in the abdomen or pelvis.
The patient states she has no abdominal pain. She denies nausea or vomiting. She denies fevers or chills. Her bowel movements are regular and unchanged. She has no bleeding rectally. She is urinating without difficulty. Her previous abdominal
surgeries include one . Her last colonoscopy was over 10 years ago at [facility] and was normal. Given these findings we have been consulted for further surgical opinion.
Past Medical History
Past Medical History: HTN, Hypercholesterolemia, Hypothyroidism and Other (giant cell arteritis, NSTEMI, pneumonia, b/l foot drop )
Past Surgical History:
Social History
Tobacco: Former Smoker
Alcohol: Occasional
Drug: None
Family History
Family History: Reviewed & Not Pertinent
Allergies / Home Medications
Allergy/AdvReac Type Severity Reaction Status Date / Time
acetaminophen [From Tylenol] Allergy Pharmacy Verified 03/01/24 18:43
to Review
diphenhydramine Allergy Unknown Verified 03/01/24 18:42
[From Benadryl]
egg Allergy Unknown Verified 03/01/24 18:42
etomidate Allergy Unknown Verified 03/01/24 18:42
ibuprofen [From Motrin] Allergy Unknown Verified 03/01/24 18:42
latex Allergy Unknown Verified 03/01/24 18:42
Sulfa (Sulfonamide Allergy Unknown Verified 03/01/24 18:42
Antibiotics)
tocilizumab [From Actemra] Allergy Unknown Verified 03/01/24 18:42
�Medication �Instructions �Recorded �Confirmed �Type
acetaminophen 500 mg tablet 1,000 mg PO Q6H pain 03/01/24 03/01/24 History
(Tylenol Extra Strength)
amlodipine 5 mg tablet 5 mg PO QPM Blood Pressure 03/01/24 03/01/24 History
aspirin 81 mg tablet,delayed 81 mg PO DAILY Blood Clot 03/01/24 03/01/24 History
release Prevention/Tx
bupropion HCl 150 mg 24 hr tablet, 150 mg PO DAILY depression/anxiety 03/01/24 03/01/24 History
extended release
calcium citrate 200 mg (950 mg) 200 mg PO BID Supplement 03/01/24 03/01/24 History
tablet
cranberry fruit 450 mg tablet 900 mg PO BID Supplement 03/01/24 03/01/24 History
(cranberry)
estradiol 0.01% (0.1 mg/gram) 1 appful vaginal SUTH Hormonal 03/01/24 03/01/24 History
vaginal cream Agent
ezetimibe 10 mg-simvastatin 20 mg 1 tab PO DAILY High Cholesterol 03/01/24 03/01/24 History
tablet
levothyroxine 75 mcg tablet 37.5 mcg PO DAILY Thyroid 03/01/24 03/01/24 History
losartan 50 mg tablet 100 mg PO QPM Blood Pressure 03/01/24 03/01/24 History
melatonin 3 mg tablet 1.5 mg PO HSPRN PRN sleep 03/01/24 03/01/24 History
methenamine hippurate 1 gram tablet 1 g PO QPM Urinary Issue 03/01/24 03/01/24 History
mirabegron 50 mg tablet,extended 50 mg PO DAILY Urinary Issue 03/01/24 03/01/24 History
release 24 hr (Myrbetriq)
omeprazole 40 mg capsule,delayed 40 mg PO DAILY Gastrointestinal 03/01/24 03/01/24 History
release Issue
oxycodone 5 mg tablet 5 mg PO Q6H Pain 03/01/24 03/01/24 History
therapeutic multivitamin 1 tab PO DAILY Supplement 03/01/24 03/01/24 History
Review of Systems
-
Abdomen/GI: Other (left groin pain)
Musculoskeletal: Joint Pain (left hip)
A 10 point review of systems was completed, and was negative except as per HPI.
Physical Exam
Vital Signs
Temp 97.5 F 03/04/24 08:03
Pulse 70 03/04/24 08:03
Resp Rate 18 03/04/24 08:03
Blood pressure 110/58 03/04/24 08:03
SaO2 98 03/04/24 08:03
Body Mass Index (BMI) 26.9
Lab Results / Allergies
03/04/24 08:13
03/04/24 08:13
WBC 11.0 10^3/uL (4.8-10.8) H 03/04/24 08:13
Hgb 13.2 g/dL (12.0-16.0) 03/04/24 08:13
Hct 39.4 % (37.0-47.0) 03/04/24 08:13
Plt Count 522 10^3/uL (130-400) H 03/04/24 08:13
Abs Immat Gran (auto) 0.1 10^3/uL (0-0.05) H 03/04/24 08:13
Neutrophils % 59.6 % (42.2-75.2) 03/04/24 08:13
Allergy/AdvReac Type Severity Reaction Status Date / Time
acetaminophen [From Tylenol] Allergy Pharmacy Verified 03/01/24 18:43
to Review
diphenhydramine Allergy Unknown Verified 03/01/24 18:42
[From Benadryl]
egg Allergy Unknown Verified 03/01/24 18:42
etomidate Allergy Unknown Verified 03/01/24 18:42
ibuprofen [From Motrin] Allergy Unknown Verified 03/01/24 18:42
latex Allergy Unknown Verified 03/01/24 18:42
Sulfa (Sulfonamide Allergy Unknown Verified 03/01/24 18:42
Antibiotics)
tocilizumab [From Actemra] Allergy Unknown Verified 03/01/24 18:42
Physical Exam
General: Well Developed and Well Nourished
GI: Soft, Non Tender and Non Distended
Rectal: Other (normal tone, soft mass noted at the tip of my finger, no blood)
Neuro: AO x 3
Data Reviewed
-
CT Scan: Image Personally Visualized and interpreted and Report Reviewed by me
MRI: Image Personally Visualized and interpreted and Report Reviewed by me
Labs: Labs Reviewed by me and Discussed with Physician
Old Records: Reviewed
Assessment / Plan
-
Assessment: 83yo female with left sided groin pain for two weeks, found to have a likely rectal mass on pelvic MRI
Plan:
-Given these findings on MRI, patient will need visualization of the area with a biopsy. Recommend GI consult.
-Continue current pain medication
-Further plans to follow after biopsy
-Will follow
[2024-03-04 16:02] VITALS: BP 127/77
--- NOTE | 2024-03-04 16:59 | CON.GI ---
Addendum entered and electronically signed by Rimma Green MD 03/05/24 11:01:
I saw and examined the patient.
The INVENTORY CONTROL/SHIPPING RECEIVING's note was reviewed and I agree with the note.
-- Rectal mass noted incidentally on imaging. Evaluated by colorectal surgery. Last colonoscopy over 10 years back in [place]
plan
Patient is agreeable for colonoscopy on Thursday
Clear liquid diet tomorrow
Bowel prep tomorrow
Original Note:
Consultation
-
Date/Time Consultation Requested: 03/04/24 1532
Date/Time Consultation Performed: 03/05/24 0650
Requesting Provider: Dr. Mercado
Performing Provider: Dr. Green/DAVYE Georges
Reason for Consultation: rectal mass
Medical History
Chief Complaint / HPI
Chief Complaint: right hip pain
History of Present Illness:
83-year-old female with past medical history of giant cell arteritis, hypertension, hyperlipidemia, hypothyroidism, non-ST elevated SD, pneumonia, bilateral foot drop who presented to the emergency room after having continued left hip pain with
radiation into the thigh and left groin. Patient was seen as an outpatient by her loss control representative with steroids that were prescribed. She was also on Percocet that helped mildly as well. She was scheduled to have an MRI next week as well as
follow-up with orthopedics. She came to the emergency room because of ambulatory dysfunction. CT of the abdomen and pelvis was performed that showed either wall adherent stool or mass in distal rectum. Pelvic MRI was performed that showed rectal
mass 1.8 cm contiguous with the mucosal surface. She was seen by colorectal surgery with rectal exam performed. Soft mass noted at the tip of finger. We were asked to evaluate for further evaluation as well as colonoscopy for visualization and
biopsy. The patient states that her last colonoscopy was at the age of 71. She states that she all her colonoscopies have been negative. She has no family history of gastrointestinal malignancy. She denies any fevers, chills, nausea, vomiting,
melena, hematochezia, dysphagia or dyne aphasia. No early satiety or unintentional weight loss. She has had no change in her bowel habits. She usually has soft to loose bowel movements. She has not had a bowel movement here as she is getting
pain control for her left hip.
Past Medical History
Past Medical History: HTN, Hypercholesterolemia, Hypothyroidism and Other (Giant cell arteritis, non-ST elevated SD, pneumonia, bilateral foot drop)
Past Surgical History:
Social History
Tobacco: Former Smoker
Alcohol: Occasional
Drug: None
Employment: Retired
Family History
Family History: Reviewed & Not Pertinent and Other (No family history gastrointestinal malignancy or IBD)
Allergies / Home Medications
Allergy/AdvReac Type Severity Reaction Status Date / Time
acetaminophen [From Tylenol] Allergy Pharmacy Verified 03/01/24 18:43
to Review
diphenhydramine Allergy Unknown Verified 03/01/24 18:42
[From Benadryl]
egg Allergy Unknown Verified 03/01/24 18:42
etomidate Allergy Unknown Verified 03/01/24 18:42
ibuprofen [From Motrin] Allergy Unknown Verified 03/01/24 18:42
latex Allergy Unknown Verified 03/01/24 18:42
Sulfa (Sulfonamide Allergy Unknown Verified 03/01/24 18:42
Antibiotics)
tocilizumab [From Actemra] Allergy Unknown Verified 03/01/24 18:42
�Medication �Instructions �Recorded
acetaminophen 500 mg tablet 1,000 mg PO Q6H pain 03/01/24
(Tylenol Extra Strength)
amlodipine 5 mg tablet 5 mg PO QPM Blood Pressure 03/01/24
aspirin 81 mg tablet,delayed 81 mg PO DAILY Blood Clot 03/01/24
release Prevention/Tx
bupropion HCl 150 mg 24 hr tablet, 150 mg PO DAILY depression/anxiety 03/01/24
extended release
calcium citrate 200 mg (950 mg) 200 mg PO BID Supplement 03/01/24
tablet
cranberry fruit 450 mg tablet 900 mg PO BID Supplement 03/01/24
(cranberry)
estradiol 0.01% (0.1 mg/gram) 1 appful vaginal SUTH Hormonal 03/01/24
vaginal cream Agent
ezetimibe 10 mg-simvastatin 20 mg 1 tab PO DAILY High Cholesterol 03/01/24
tablet
levothyroxine 75 mcg tablet 37.5 mcg PO DAILY Thyroid 03/01/24
losartan 50 mg tablet 100 mg PO QPM Blood Pressure 03/01/24
melatonin 3 mg tablet 1.5 mg PO HSPRN PRN sleep 03/01/24
methenamine hippurate 1 gram tablet 1 g PO QPM Urinary Issue 03/01/24
mirabegron 50 mg tablet,extended 50 mg PO DAILY Urinary Issue 03/01/24
release 24 hr (Myrbetriq)
omeprazole 40 mg capsule,delayed 40 mg PO DAILY Gastrointestinal 03/01/24
release Issue
oxycodone 5 mg tablet 5 mg PO Q6H Pain 03/01/24
therapeutic multivitamin 1 tab PO DAILY Supplement 03/01/24
Review of Systems
-
All other systems: A 12 pt ROS was Negative except as stated above in HPI
Vital Signs
Temp Pulse Resp BP Pulse Ox
98 F 83 18 127/77 98
03/04/24 16:02 03/04/24 16:02 03/04/24 16:02 03/04/24 16:02 03/04/24 16:02
Physical Exam
Exam
General: No Apparent Distress
HEENT: Anicteric
Respiratory: Clear
Cardiac: Regular Rhythm
GI: Soft, Non Tender, Non Distended and Normal Bowel Sounds
Musculoskeletal: No Edema
Neuro: AO x 3
Psych: Calm
Results
WBC 11.0 10^3/uL (4.8-10.8) H 03/04/24 08:13
Hgb 13.2 g/dL (12.0-16.0) 03/04/24 08:13
Hct 39.4 % (37.0-47.0) 03/04/24 08:13
MCV 85.7 fL (81.0-99.0) 03/04/24 08:13
Plt Count 522 10^3/uL (130-400) H 03/04/24 08:13
Absolute Neuts (auto) 6.5 10^3/uL (1.4-6.5) 03/04/24 08:13
Sodium 130 mmol/L (135-145) L 03/04/24 08:13
Potassium 4.4 mmol/L (3.5-5.1) 03/04/24 08:13
Chloride 95 mmol/L (98-107) L 03/04/24 08:13
Carbon Dioxide 27 mmol/L (22-30) 03/04/24 08:13
BUN 25 mg/dl (7-17) H 03/04/24 08:13
Creatinine 0.8 mg/dL (0.6-1.0) 03/04/24 08:13
Calcium 9.5 mg/dl (8.4-10.2) 03/04/24 08:13
Total Bilirubin 0.8 mg/dl (0.2-1.3) 03/01/24 21:19
AST 32 U/L (14-36) 03/01/24 21:19
ALT 31 U/L (0-35) 03/01/24 21:19
Alkaline Phosphatase 60 U/L (38-126) 03/01/24 21:19
Diagnostic Image Results:
CT Abd/Pelvis with IV/Oral Contrast 03/04/24:
IMPRESSION:
Either wall adherent stool or a mass within the distal rectum, suboptimally evaluated on the current examination and better visualized on MRI the pelvis. There is no evidence of metastatic disease in the abdomen or pelvis. Direct visualization is
recommended to exclude the possibility of a distal rectal mass.
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 Routine, nonemergent outpatient MRI of the abdomen is recommended for further evaluation.
Calcified uterine fibroids.
Other Chronic/incidental findings as detailed in the body of the report.
Electronically signed by Bruno Hirsch DO, 03/04/2024 10:19 AM
Lumbar spine MRI 03/03/24:
IMPRESSION:
Minor scoliosis. Mild degenerative disc disease. Facet arthrosis. Minimal grade 1 spondylolisthesis of L4 and L5.
Small protrusion at L1-2 with mild right foraminal narrowing.
Mild left foraminal narrowing at L3-4.
Tiny annular fissure and small bulge at L4-5, with mild to moderate central canal narrowing and bilateral lateral recess stenosis, right greater than left, compressing the descending L5 nerve roots. Moderate bilateral foraminal narrowing.
Moderate right and mild left foraminal narrowing at L5-S1.
Electronically signed by Aj Song MD, 03/03/2024 12:22 P
Pelvis MRI 03/03/24:
IMPRESSION:
Prominent cervix, with probable innumerable complex nabothian cysts. No significant enhancement following intravenous contrast. Correlation with gynecologic exam and Pap smear recommended.
Rectal mass. Although this could represent adherent feces, digital rectal examination advised to assess for the possibility of a polyp.
Calcified uterine fibroid.
Electronically signed by Aj Song MD, 03/03/2024 12:[address] 02/29/24:
IMPRESSION: No CT evidence for acute fracture or dislocation.
1.8 cm calcification involving the right side of the uterus compatible with calcified fibroid.
At the junction of the superior vagina and the cervix, 3 cm rounded focus of relatively increased density. Etiology for this finding is uncertain, possibly a cervical fibroid. If further imaging evaluation is desired, consideration for pelvic
ultrasound and/or pelvic MRI.
Prior GI Procedures:
EGD:
Colonoscopy: Over 10 years ago at [facility]. 'Normal'
Assessment / Plan
-
83-year-old female with past medical history of giant cell arteritis, hypertension, hyperlipidemia, hypothyroidism, non-ST elevated SD, pneumonia, bilateral foot drop who presented to the emergency room after having continued left hip pain with
radiation into the thigh and left groin. Patient was seen as an outpatient by her loss control representative with steroids that were prescribed. She was also on Percocet that helped mildly as well. She was scheduled to have an MRI next week as well as
follow-up with orthopedics. She came to the emergency room because of ambulatory dysfunction. CT of the abdomen and pelvis was performed that showed either wall adherent stool or mass in distal rectum. Pelvic MRI was performed that showed rectal
mass 1.8 cm contiguous with the mucosal surface. She was seen by colorectal surgery with rectal exam performed. Soft mass noted at the tip of finger. We were asked to evaluate for further evaluation as well as colonoscopy for visualization and
biopsy. Patient with no GI complaints. Agreeable for colonoscopy on Thursday given abnormal findings on imaging and rectal exam by colorectal surgery.
Impression:
Rectal Mass
Intractable left hip pain
Plan:
-Low residue diet today
-Capful of MiraLAX this evening
-Clear liquid diet tomorrow
-Prep for colonoscopy starting tomorrow with colonoscopy on Thursday.
-Further recommendations to be forthcoming
Data Reviewed
-
CT Scan: Report Reviewed by me
MRI: Report Reviewed by me
-
-
Thank you for consultation and allowing me to participate in the patient's care. Please call the fitness sales consultant GI physician during the after hours with any questions or concerns.
[2024-03-04] MEDS: NORVASC 5 MG PO (17:36)
[2024-03-04] MEDS: HIPREX 1 GRAM PO (17:36)
[2024-03-04] MEDS: COZAAR 100 MG PO (17:36)
[2024-03-04] MEDS: LOVENOX 40 MG SC (17:37)
[2024-03-04] MEDS: DILAUDID 0.5 MG IV (23:29)
[2024-03-04 23:34] VITALS: BP 102/58
[2024-03-05] MEDS: SYNTHROID 37.5 MCG PO (05:38)
[2024-03-05 07:15] VITALS: BP 118/57
[2024-03-05 08:01] LABS: % Basophils 0.7 % (0-2); % Eosinophils 2.8 % (0-6); % Immature Granulocytes 0.8 % (0-0.5); % Lymphocytes 16.2 % (20.5-51.1); % Monocytes 9.2 % (1.7-9.3); % Neutrophils 70.3 % (42.2-75.2); Absolute Basophils 0.1 10^3/uL (0-0.2); Absolute Eosinophils 0.3 10^3/uL (0-0.7); Absolute Immature Granulocytes 0.1 10^3/uL (0-0.05); Absolute Lymphocytes 1.7 10^3/uL (1.2-3.4); Absolute Monocytes 0.9 10^3/uL (0.1-0.6); Absolute Neutrophils 7.2 10^3/uL (1.4-6.5); Hematocrit 39.2 % (37.0-47.0); Mean Corp Hgb Conc. 33.2 g/dL (33.0-37.0); Mean Corpuscular Hgb 28.1 pg (27.0-31.0); Mean Corpuscular Volume 84.8 fL (81.0-99.0); Mean Platelet Volume 8.4 fL (7.4-10.4); Nucleated Red Blood Cells % 0 %; Platelet Count 507 10^3/uL (130-400); Red Blood Cell Count 4.62 10^6/uL (4.20-5.40); Red Cell Dist. Width 15.4 % (11.5-14.5); White Blood Cell Count 10.3 10^3/uL (4.8-10.8)
[2024-03-05] MEDS: ASPIR LOW (ENTERIC COATED) 81 MG PO (08:08)
[2024-03-05] MEDS: MYRBETRIQ EXTENDED RELEASE 50 MG PO (08:09)
[2024-03-05] MEDS: ZETIA 10 MG PO (08:10)
[2024-03-05] MEDS: LIPITOR 10 MG PO (08:10)
[2024-03-05] MEDS: OSCAL CAL 500 500 MG PO ×2 (08:10→20:30)
[2024-03-05] MEDS: WELLBUTRIN XL (24 hour extended release) 150 MG PO (08:10)
[2024-03-05] MEDS: TYLENOL 650 MG PO ×2 (08:11→21:59)
[2024-03-05 08:43] LABS: Blood Urea Nitrogen 21 mg/dl (7-17); Calcium 9.2 mg/dl (8.4-10.2); Carbon Dioxide 30 mmol/L (22-30); Chloride 98 mmol/L (98-107); Estimated Creatinine Clearance 49 ml/min; Glucose 95 mg/dl (70-99); Potassium 4.7 mmol/L (3.5-5.1); Sodium 133 mmol/L (135-145); eGFR > 60.00
[2024-03-05] MEDS: DILAUDID 0.5 MG IV (09:50)
--- NOTE | 2024-03-05 12:42 | W.PN.HOSP.TC ---
Today's Communication/Plan
-
Monitor vital signs see plan
Plan for colonoscopy Thursday
Pain control
Monitor sodium
Assessment / Plan
Assessment / Plan
General: Well Developed, Well Nourished and No Apparent Distress
HEENT: NormoCephalic, Moist mucous membranes and Atraumatic
Respiratory: Clear
Cardiac: S1/S2 and Regular Rhythm; No Murmur or Rub
GI: Soft, Non Tender, Non Distended and Normal Bowel Sounds
Musculoskeletal: No Edema
Neuro: AO x 3 and Nonfocal/grossly intact
Psych: Calm
intractable left hip pain unclear cause
Now improving, suspect secondary to spine degenerative disease
#calcified fibroid
-pelvis CT with No CT evidence for acute fracture or dislocation.1.8 cm calcification involving the right side of the uterus compatible with calcified fibroid.At the junction of the superior vagina and the cervix, 3 cm rounded focus of relatively
increased density. Etiology for this finding is uncertain, possibly a cervical fibroid. If further imaging evaluation is desired, consideration for pelvic ultrasound and/or pelvic MRI.
MRI lumbar spine with degenerative disc disease with foraminal narrowing
-Tylenol, Dilaudid prn for pain. per patient pain is improving.
Follow-up with [facility] outpatient. MRI pelvis was concerning for possible rectal mass. CT scan of the abdomen/pelvis 03/04 noted. Direct visualization is advised. colorectal following. Rectal lesion felt. GI consulted for colonoscopy.
Plan for colonoscopy 03/07
-PT/OT consult
#leukocytosis
-afebrile, ctm
Hyponatremia
monitor
#essential HTN
-Norvasc, and losartan continued with hold parameter
#HLD
-statin continued
#hypothyroidism
-levothyroxine continued
#GERD
-PPI continued
#DVT prophylaxis
-Lovenox
#CODE status
-full code
Anticipated Discharge: 24 - 48 hours
Subjective/Interval History
-
Date of Service: March 05, 2024
Denies nausea
Objective Data
-
Labs:
Laboratory Results
03/05/24
07:18
WBC 10.3
Hgb 13.0
Hct 39.2
Plt Count 507 H
Sodium 133 L
Potassium 4.7
Chloride 98
Carbon Dioxide 30
BUN 21 H
Creatinine 0.8
Glucose 95
Calcium 9.2
Vital Signs:
Vital Signs
Temp Pulse Resp BP Pulse Ox
98.2 F 73 16 118/57 95
03/05/24 07:15 03/05/24 07:15 03/05/24 07:15 03/05/24 07:15 03/05/24 08:00
I&O
03/04/24 03/05/24 03/06/24
06:59 06:59 06:59
Intake Total 1380 / 1380 1680 / 1680
Balance 1380 / 1380 1680 / 1680
[2024-03-05 15:47] VITALS: BP 116/47
[2024-03-05] MEDS: HIPREX 1 GRAM PO (17:11)
[2024-03-05] MEDS: NORVASC 5 MG PO (17:11)
[2024-03-05] MEDS: MIRALAX 17 GRAMS PO (17:13)
[2024-03-05] MEDS: COZAAR 100 MG PO (17:13)
[2024-03-05] MEDS: LOVENOX 40 MG SC (17:13)
[2024-03-05 23:00] VITALS: BP 97/56
[2024-03-06] MEDS: TYLENOL 650 MG PO (05:52)
[2024-03-06] MEDS: SYNTHROID 37.5 MCG PO (05:52)
[2024-03-06 07:02] VITALS: BP 98/51
[2024-03-06] MEDS: ASPIR LOW (ENTERIC COATED) 81 MG PO (08:26)
[2024-03-06] MEDS: MYRBETRIQ EXTENDED RELEASE 50 MG PO (08:26)
[2024-03-06] MEDS: OSCAL CAL 500 500 MG PO ×2 (08:26→21:13)
[2024-03-06] MEDS: WELLBUTRIN XL (24 hour extended release) 150 MG PO (08:27)
[2024-03-06] MEDS: LIPITOR 10 MG PO (08:27)
[2024-03-06] MEDS: ZETIA 10 MG PO (08:27)
[2024-03-06 08:52] LABS: % Basophils 0.8 % (0-2); % Eosinophils 3.9 % (0-6); % Immature Granulocytes 0.6 % (0-0.5); % Lymphocytes 22.5 % (20.5-51.1); % Monocytes 9.4 % (1.7-9.3); % Neutrophils 62.8 % (42.2-75.2); Absolute Basophils 0.1 10^3/uL (0-0.2); Absolute Eosinophils 0.4 10^3/uL (0-0.7); Absolute Immature Granulocytes 0.1 10^3/uL (0-0.05); Absolute Lymphocytes 2.4 10^3/uL (1.2-3.4); Absolute Neutrophils 6.6 10^3/uL (1.4-6.5); Hematocrit 42.2 % (37.0-47.0); Hemoglobin 13.9 g/dL (12.0-16.0); Mean Corp Hgb Conc. 32.9 g/dL (33.0-37.0); Mean Corpuscular Hgb 28.8 pg (27.0-31.0); Mean Corpuscular Volume 87.6 fL (81.0-99.0); Mean Platelet Volume 8.6 fL (7.4-10.4); Nucleated Red Blood Cells % 0 %; Platelet Count 554 10^3/uL (130-400); Red Blood Cell Count 4.82 10^6/uL (4.20-5.40); Red Cell Dist. Width 15.4 % (11.5-14.5); White Blood Cell Count 10.5 10^3/uL (4.8-10.8)
[2024-03-06] MEDS: TYLENOL PO (09:11)
[2024-03-06 09:12] LABS: Blood Urea Nitrogen 18 mg/dl (7-17); Calcium 9.7 mg/dl (8.4-10.2); Carbon Dioxide 28 mmol/L (22-30); Chloride 99 mmol/L (98-107); Estimated Creatinine Clearance 39 ml/min; Glucose 95 mg/dl (70-99); Potassium 5.1 mmol/L (3.5-5.1); Sodium 134 mmol/L (135-145); eGFR 56.25
--- NOTE | 2024-03-06 09:14 | CM ---
Addendum entered by Bushra Estrada 03/06/24 09:25:
patient states she has been attending op physical [place] at at [facility] [place]she will continue op services when dc home.
Original Note:
met with patient at bedside.patient lives alone in house with no maryam,her bed and bath is on first level,she amb i and is i with her adl.
her pcp is dr abraham and she uses [facility] in [place].she has never had a vn or been in ip rehab.
PMH:htn,hld
Patient adm with left hip pain/amb dysfunction.she was found to be hyponatremic.monitoring na/wbc.patient has declined pt eval stating she is amb to and from bathroom.patient is for colonoscopy tomorrow.plan home with no needs when stable for dc.
[2024-03-06] MEDS: NEURONTIN 200 MG PO ×3 (09:47→21:13)
--- NOTE | 2024-03-06 11:40 | W.PN.HOSP.TC ---
Today's Communication/Plan
-
Monitor vital signs
see plan
Colonoscopy tomorrow
Start gabapentin and standing Tylenol
Pain control
Assessment / Plan
Assessment / Plan
General: Well Developed, Well Nourished and No Apparent Distress
HEENT: NormoCephalic, Moist mucous membranes and Atraumatic
Respiratory: Clear
Cardiac: S1/S2 and Regular Rhythm; No Murmur or Rub
GI: Soft, Non Tender, Non Distended and Normal Bowel Sounds
Musculoskeletal: No Edema
Neuro: AO x 3 and Nonfocal/grossly intact
Psych: Calm
intractable left hip pain unclear cause
Now improving, suspect secondary to spine degenerative disease
#calcified fibroid
-pelvis CT with No CT evidence for acute fracture or dislocation.1.8 cm calcification involving the right side of the uterus compatible with calcified fibroid.At the junction of the superior vagina and the cervix, 3 cm rounded focus of relatively
increased density. Etiology for this finding is uncertain, possibly a cervical fibroid. If further imaging evaluation is desired, consideration for pelvic ultrasound and/or pelvic MRI.
Recommended patient to follow-up with gynecology and orthopedics outpatient
MRI lumbar spine with degenerative disc disease with foraminal narrowing
-Tylenol, Dilaudid prn for pain. Started gabapentin, uptitrate as necessary. Standing Tylenol
Follow-up with [facility] Ortho outpatient. MRI pelvis was concerning for possible rectal mass. CT scan of the abdomen/pelvis 03/04 noted. Direct visualization is advised. colorectal following. Rectal lesion felt. GI consulted for colonoscopy.
Plan for colonoscopy 03/07
-PT/OT consult
#leukocytosis
-afebrile, ctm
Hyponatremia
monitor
#essential HTN
-Norvasc, and losartan continued with hold parameter
#HLD
-statin continued
#hypothyroidism
-levothyroxine continued
#GERD
-PPI continued
#DVT prophylaxis
-Lovenox
#CODE status
-full code
Anticipated Discharge: Within 24 hours
Subjective/Interval History
-
Date of Service: March 06, 2024
Denies nausea
Objective Data
-
Labs:
Laboratory Results
03/06/24
07:46
WBC 10.5
Hgb 13.9
Hct 42.2
Plt Count 554 H
Sodium 134 L
Potassium 5.1
Chloride 99
Carbon Dioxide 28
BUN 18 H
Creatinine 1.0
Glucose 95
Calcium 9.7
Vital Signs:
Vital Signs
Temp Pulse Resp BP Pulse Ox
97.5 F 76 16 98/51 94
03/06/24 07:02 03/06/24 07:02 03/06/24 07:02 03/06/24 07:02 03/06/24 10:28
I&O
03/05/24 03/06/24 03/07/24
06:59 06:59 06:59
Intake Total 1680 / 1680 1280 / 1280
Balance 1680 / 1680 1280 / 1280
[2024-03-06] MEDS: TYLENOL 1000 MG PO ×2 (15:22→21:13)
[2024-03-06 15:36] VITALS: BP 108/55
[2024-03-06] MEDS: NULYTELY SOLUTION 4 LITERS PO (16:03)
[2024-03-06] MEDS: NORVASC PO (17:22)
[2024-03-06] MEDS: COZAAR PO (17:22)
[2024-03-06] MEDS: LOVENOX 40 MG SC (17:23)
[2024-03-06] MEDS: HIPREX 1 GRAM PO (17:23)
[2024-03-06 23:28] VITALS: BP 121/57
[2024-03-07] VITALS (10 sets, daily range): BP systolic 12–147; BP diastolic 51–76
[2024-03-07] MEDS: DILAUDID 0.5 MG IV ×2 (00:07→11:21)
--- NOTE | 2024-03-07 00:44 | PTCARENOTE ---
Pt with small amount of prep left, unable to finish the last 100-200 cc. Pt tolerated the prep- no complaints of pain or nausea. States she does feel bloated after prep. Stool is liquid, however still brown at this time. Plan of care ongoing.
[2024-03-07] MEDS: SYNTHROID 37.5 MCG PO (04:50)
[2024-03-07 07:57] LABS: % Basophils 0.7 % (0-2); % Eosinophils 3.3 % (0-6); % Immature Granulocytes 0.5 % (0-0.5); % Lymphocytes 20.8 % (20.5-51.1); % Neutrophils 66.7 % (42.2-75.2); Absolute Basophils 0.1 10^3/uL (0-0.2); Absolute Eosinophils 0.3 10^3/uL (0-0.7); Absolute Immature Granulocytes 0.1 10^3/uL (0-0.05); Absolute Monocytes 0.8 10^3/uL (0.1-0.6); Absolute Neutrophils 6.5 10^3/uL (1.4-6.5); Hematocrit 38.7 % (37.0-47.0); Hemoglobin 12.6 g/dL (12.0-16.0); Mean Corp Hgb Conc. 32.6 g/dL (33.0-37.0); Mean Corpuscular Hgb 27.9 pg (27.0-31.0); Mean Corpuscular Volume 85.6 fL (81.0-99.0); Mean Platelet Volume 8.3 fL (7.4-10.4); Nucleated Red Blood Cells % 0 %; Platelet Count 457 10^3/uL (130-400); Red Blood Cell Count 4.52 10^6/uL (4.20-5.40); Red Cell Dist. Width 15.2 % (11.5-14.5); White Blood Cell Count 9.8 10^3/uL (4.8-10.8)
[2024-03-07 08:15] LABS: Blood Urea Nitrogen 16 mg/dl (7-17); Calcium 8.9 mg/dl (8.4-10.2); Carbon Dioxide 28 mmol/L (22-30); Chloride 101 mmol/L (98-107); Estimated Creatinine Clearance 43 ml/min; Glucose 86 mg/dl (70-99); Potassium 4.5 mmol/L (3.5-5.1); Sodium 135 mmol/L (135-145); eGFR > 60.00
[2024-03-07] MEDS: ASPIR LOW (ENTERIC COATED) 81 MG PO (08:20)
[2024-03-07] MEDS: TYLENOL 1000 MG PO (08:20)
[2024-03-07] MEDS: NEURONTIN 200 MG PO (08:21)
[2024-03-07] MEDS: MYRBETRIQ EXTENDED RELEASE 50 MG PO (08:21)
[2024-03-07] MEDS: ZETIA 10 MG PO (08:21)
[2024-03-07] MEDS: LIPITOR 10 MG PO (08:21)
[2024-03-07] MEDS: WELLBUTRIN XL (24 hour extended release) 150 MG PO (08:22)
[2024-03-07] MEDS: OSCAL CAL 500 500 MG PO (08:22)
[2024-03-07] MEDS: FLUSH (NSS) 1 FLUSH IV (08:23)
[2024-03-07] MEDS: FLUSH (NSS) 2 FLUSH IV (11:24)
--- NOTE | 2024-03-07 11:30 | PTCARENOTE ---
received post colonoscopy- assisted to bed. vitals noted. reporting severe pain in left hip and left upper leg, requested and given dilaudid as ordered. plan of care ongoing.
--- NOTE | 2024-03-07 12:21 | CM ---
Patient seen bedside, reports she just returned from colonoscopy. 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 Patient reports her son will be providing transportation home, reports her daughter resides in [place] and
will be staying with her for a month. IMM reviewed, signed, placed in chart. CM will continue to follow for all discharge planning needs.
Plan; home no needs.
--- NOTE | 2024-03-07 14:51 | W.PN.HOSP.TC ---
Today's Communication/Plan
-
d/c home
Assessment / Plan
Assessment / Plan
1. Left hip pain
-reason unclear at this point
-CT/MRI did not show any joint abnormalities
-MRI L spine some foraminal narrowing and minimal disc protrusion
-Continue symptomatic care for now, increased pain meds
-added gabapentin to regimen
-patient to f/u with orthopedic surgeon in office
2. Calcified uterine fibroid
-discussed imaging findings with family
3. Rectal polyp
-MRI pelvis showed suspected rectal mass
-underwent c-scope with found to have 30mm rectal polyp, biopsied
-pt to f/u with GI in office.
4. Leukocytosis
-afebrile, ctm
5. Hyponatremia
- monitor
essential HTN -Norvasc, and losartan continued with hold parameter
HLD -statin continued
Hypothyroidism-levothyroxine continued
GERD - PPI continued
DVT prophylaxis -Lovenox
CODE status-full code
More than 30 minutes spent in discharge including
Final examination of the patient
Summarizing hospital stay
Instructions for continuing care to all relevant caregivers
Preparation of discharge records, prescriptions, and referral forms
Total time spent (in minutes): 38 mins
Anticipated Discharge: Today
Subjective/Interval History
-
Date of Service: March 07, 2024
some pain in left hip
no other reported problems
Objective Data
-
Labs:
Laboratory Results
03/07/24
07:35
WBC 9.8
Hgb 12.6
Hct 38.7
Plt Count 457 H
Sodium 135
Potassium 4.5
Chloride 101
Carbon Dioxide 28
BUN 16
Creatinine 0.9
Glucose 86
Calcium 8.9
Vital Signs:
Vital Signs
Temp Pulse Resp BP Pulse Ox
97 F 75 14 118/76 96
03/07/24 11:17 03/07/24 11:17 03/07/24 11:17 03/07/24 11:17 03/07/24 11:17
I&O
03/06/24 03/07/24 03/08/24
06:59 06:59 06:59
Intake Total 1280 / 1280 1000 / 1000
Balance 1280 / 1280 1000 / 1000
Review of Systems
-
Respiratory: Reports No Symptoms
Cardiac: Reports No Symptoms
Abdomen/GI: Reports No Symptoms
Physical Exam
-
General: No Apparent Distress and Comfortable
HEENT: Negative Oxygen
Respiratory: Clear to Auscultation
Cardiac: Regular Rhythm and S1/S2; Negative Murmur or Rub
GI: Soft, Nontender and Nondistended
Musculoskeletal: No Edema
Neuro: Awake, Alert, Oriented, No Motor Deficits and Nonfocal/Grossly Intact
Psych: Calm
== END 2024-03-07 14:54 | disposition home or self-care (01) | DRG 394 ==
LOC: 4 EAST ACU 08:41
PROVIDERS: Internal Medicine; Registered Nurse; ADMITTING PHYSICIAN Hospitalist; ATTENDING PHYSICIAN Hospitalist; CONSULT PHYSICIAN Internal Medicine Gastroenterology; CONSULT PHYSICIAN Surgery; EMERGENCY PHYSICIAN Emergency Medicine; FAMILY PHYSICIAN Internal Medicine
PROC: 0DBP8ZX Excision of Rectum, Via Natural or Artificial Opening Endoscopic, Diagnostic (ICD-10-PCS; 2024-03-07)
DX: K63.5 Polyp of colon (principal); E87.1 Hypo-osmolality and hyponatremia; M25.552 Pain in left hip; I10 Essential (primary) hypertension; E03.9 Hypothyroidism, unspecified; M31.6 Other giant cell arteritis; K21.9 Gastro-esophageal reflux disease without esophagitis; M21.372 Foot drop, left foot; M21.371 Foot drop, right foot; D72.828 Other elevated white blood cell count; T38.0X5A Adverse effect of glucocorticoids and synthetic analogues, initial encounter; D25.9 Leiomyoma of uterus, unspecified; D26.0 Other benign neoplasm of cervix uteri; E78.00 Pure hypercholesterolemia, unspecified; E27.9 Disorder of adrenal gland, unspecified; F32.A Depression, unspecified; F41.9 Anxiety disorder, unspecified; K57.30 Diverticulosis of large intestine without perforation or abscess without bleeding; K64.8 Other hemorrhoids; M48.061 Spinal stenosis, lumbar region without neurogenic claudication; K59.00 Constipation, unspecified; I25.2 Old myocardial infarction; Z87.891 Personal history of nicotine dependence; Z88.2 Allergy status to sulfonamides; Z91.040 Latex allergy status; Z79.899 Other long term (current) drug therapy; Z79.82 Long term (current) use of aspirin; Z79.890 Hormone replacement therapy
CPT/HCPCS: 88305; 72148; 72197; 74177; 80048; 80053; 82550; 83735; 85025; 85027; 85652; 86140; 97165; 99285; A9575; Q9967